=== PATIENT | female | born 1985 | race Caucasian/White ===

== ENCOUNTER 2016-05-30 11:10 | Outpatient (CLI) | payer OTHER ==
[~2016-05-30] VITALS: Ht 167.6 cm; Wt 95.7 kg
[2016-05-30 11:43] VITALS: Ht 167.6 cm; Wt 95.7 kg
[2016-05-30 11:45] VITALS: BP 120/60; PULSE 111; RESP 19
--- NOTE | 2016-05-30 13:05 | RADRPT ---
PROCEDURE: US OB biophysical profile. CLINICAL INDICATION: decreased movements TECHNIQUE: Multiple sonographic images of the pelvis were obtained. The images were reviewed on a PACS workstation. COMPARISON: No prior studies are available for comparison. FINDINGS: There is a single viable intrauterine gestation. Cardiac activity is present with 141 beats per min [place]. There is a vertex presentation. The placenta is posterior. There is no evidence of placental abruption. There is a normal amount of amniotic fluid with an DERRICK = 11.1 cm. Biophysical profile: movement 2/2 tone 2/2. breathing 2/2 DERRICK 2/2 Total 10/03 RPTAT: AA . IMPRESSION: Normal biophysical profile. . .Arsh Watkins MD, MD Date Time Electronically viewed and signed by .Arsh Watkins MD, MD on 05/30/2016 13:05 .S/
--- NOTE | 2016-05-30 13:34 | TRIAGE ---
OB Triage Datetime Report Generated by CPN: 05/30/2016 13:34 Datetime: 05/30/2016 13:25 Vaginal Exam Dilatation (cms): 0.5 Station: -3 Exam By: FOROOHAR Vaginal Bleeding: None Cervix, Consistency: Moderate Cervix, Position: Posterior Datetime: 05/30/2016 12:21 Labor Evaluation Frequency: IRREG Monitor Mode: External Duration (sec)2399: 40-50 Pattern: Normal: <= 5 Contractions in 10 Minutes Resting Tone [place]: Relaxed Heart Rate FHR Baseline Rate: 130 Monitor Mode: External US Variability: Moderate 6-25 bpm Accelerations: 15X15 Decelerations: None Category: Category I Datetime: 05/30/2016 12:04 Time of Arrival: 05/30/2016 11:05 EGA: 33.1 Arrived By: Ambulatory Arrived From: Home Chief Complaint: FEVER 101.5 ON SUNDAY, DFM, ABD PRESSURE, COUGHING Movement: Decreased Contractions: Denies/Absent Rupture of Membranes: Denies Vaginal Bleeding: None Vaginal Discharge: Denies Recent Sexual Intercouse: Denies Abdominal Trauma: Not Applicable Patient Complaints: None Time Provider Notified: 05/30/2016 12:14 Provider Notified: DR. GAY Initial Plan: TOCO/ US Datetime: 05/30/2016 11:53 Stage of : OB Triage Temperature Route: Oral Pain Assessment Pain Presence: None/Denies Datetime: 05/30/2016 11:51 Stage of : OB Triage Datetime: 05/30/2016 11:50 Assessment Type: Admission Assessment Maternal Assessment Level of Consciousness: Fully Conscious DTR's/Clonus: DTRs 2+; No Clonus Headache: Denies Blurred Vision: No Respiratory Effort: Unlabored; Regular Rhythm; Equal Expansion Breath Sounds, Left: Clear and Equal Breath Sounds, Right: Clear and Equal Nausea/Vomiting: Denies RUQ Epigastric Pain: Denies Lower Extremities Edema: None Degree: None Upper Extremities Edema: None Degree: None Facial Edema: None Fall Risk Assessment History of Falling: (0) No Secondary Diagnosis: (0) No Ambulatory Aid: (0) Bedrest/Nurse Assist IV Therapy: (0) No Gait: (0) Normal/Bedrest/Immobile Mental Status: (0) Oriented to Own Ability Fall Score: 0 Fall Risk Score Definition: No Risk: No action required
--- NOTE | 2016-05-30 13:44 | CONS ---
Date/Time of Note Date/Time of Note DATE: 05/30/16 TIME: 13:32 Consultation Date/Type/Reason Admit Date/Time May 30, 2006 OB triage consult Reason for Consultation This patient is a 30 years old 5 para 4 with EDC of July 21 which makes her 37 weeks and 1 day She came to OB triage clinic complaining of abdominal pain as well as body aches and temperature On general examination she is a well-developed well-nourished lady closed with her In reviewing her vital signs blood pressure is 120/60 pulse rate 111 respiration 19 temperature is 98.0 On exam her ear nose throat appears to be no neck vein distention no adenopathy no tenderness Chest generally is clear no rales Heart normal sinus rhythm somewhat tachyng of around 110-100 111. No murmur Respirations 19 no coughing or sneezing at this time. Her breasts are soft nipples are intact Abdomen is soft slight pain of the lower portion of No CVA tenderness movement is no, heart rate is she has very occasional contractions On pelvic examination cervix is very soft about 1 finger 40% with intact membranes on ultrasound study there is a single live intrauterine gestation in vertex presentation placenta is posterior no evidence of abruption amniotic fluid is around 11.1 cm DERRICK her biophysical profile was reported 10/03 Constitutional: other (She said she had a temperature 101 at home but here her temperature is 98), No chills, No diaphoresis, No disoriented, No febrile, No improved, No no complaints, No poor po, No requiring IVF, No requiring O2 Eyes: No discharge, No no complaints, No other, No pain, No redness, No visual change ENT: No bleeding, No congestion, No discharge, No dysphagia, No no complaints, No other, No pain, No sore throat Respiratory: other (No cough no sneezing), No cough, No no complaints, No pain, No pleuritic pain, No shortness of breath, No sputum, No wheezing Cardiovascular: No chest pain, No edema, No lightheadedness, No no complaints, No orthopenea, No other, No palpitations, No paroxysmal nocturnal dyspnea Gastrointestinal: No blood, No constipation, No decreased appetite, No diarrhea , No flatus, No nausea, No no complaints, No other, No pain, No passing stool, No vomiting Genitourinary: other (On pelvic exam is a mention the cervix is about 1-2 cm dilated soft about 40% effaced no evidence of rupture of membrane), No bleeding, No discharge, No dysuria, No flank pain, No hematuria, No no complaints Musculoskeletal: No back pain, No bone/joint pain, No neck pain, No no complaints, No other, No restricted range of motion, No swelling Skin: No bruising, No erythema, No laceration, No no complaints, No other, No pruritis, No rash, No skin lesions Neurologic: No confusion, No dizziness, No focal-weakness, No headache, No no complaints, No other, No seizure, No syncope Endocrine: No dry skin, No no complaints, No other, No polydypsia, No polyuria , No temp intolerance Psychological: No anxiety, No confusion, No depression, No nl mood/affect, No no complaints, No other, No suicidal Additional Comments With these finding patient was given reassurance of her And she was told that apparently you are coming down with the cold symptoms if she desire we consent her to emergency room for further evaluation Social History Smoking Status: Never smoker Exam/Review of Systems Vital Signs Vitals Vital Signs Date Time Temp Pulse Resp B/P Pulse Ox O2 Delivery O2 Flow Rate FiO2 05/30/16 11:45 98.0 111 19 120/60 Room Air TRAVON REYES MD May 30, 2016 13:42
== END 2016-05-30 13:35 | disposition home or self-care (01) ==
LOC: OBT 11:10 → L-D 11:11 → OBT 13:35
PROVIDERS: ATTEND Obstetrics & Gynecology
DX: O26.892 Other specified pregnancy related conditions, second trimester (principal); R10.9 Unspecified abdominal pain; Z3A.37 37 weeks gestation of pregnancy
CPT/HCPCS: 76818; Z7500; G0463

== ENCOUNTER 2016-07-06 13:52 | Inpatient (IN) | payer OTHER ==
[~2016-07-06] VITALS: Ht 167.6 cm; Wt 96.4 kg
[2016-07-06] MEDS ORDERED: LACTATED RINGER'S 1,000 ML IV PRN (14:00)
[2016-07-06] MEDS ORDERED: BUTORPHANOL 2 MG INJ ONE (14:02)
[2016-07-06] MEDS ORDERED: LACTATED RINGER'S 1,000 ML IV SCH (14:05)
[2016-07-06 14:15] VITALS: Ht 167.6 cm; Wt 96.4 kg
[2016-07-06 14:29] LABS: ADD SCAN DIFF NO
[2016-07-06] MEDS ORDERED: MISOPROSTOL 200 MCG TAB PR PRN ×2 (14:30→17:00)
[2016-07-06] MEDS ORDERED: OXYTOCIN 30 UNITS/LR 500 ML IV PRN ×2 (14:30→17:00)
[2016-07-06] MEDS ORDERED: CARBOPROST 250 MCG INJ IM PRN ×2 (14:30→17:00)
[2016-07-06] MEDS ORDERED: LIDOCAINE 1% (MPF) 30 ML INJ INJ PRN (14:30)
[2016-07-06] MEDS ORDERED: BUTORPHANOL 2 MG INJ IV PRN (14:30)
[2016-07-06] MEDS ORDERED: IBUPROFEN 600 MG TAB PO PRN (14:30)
[2016-07-06] MEDS ORDERED: OXYTOCIN 30 UNITS/LR 500 ML IV SCH ×2 (14:30)
[2016-07-06] MEDS ORDERED: METHYLERGONOVINE 0.2 MG INJ IM PRN ×2 (14:30→17:00)
[2016-07-06 14:31] LABS: ABNORMAL IP MESSAGE 1; BASOPHILS % 0.4 % (0.0-2.0); EOSINOPHILS % 0.4 % (0.0-7.0); HEMATOCRIT 38.2 % (37.0-47.0); HEMOGLOBIN 12.4 g/dl (12.0-16.0); LYMPHOCYTES # 1.6 10^3/ul (0.8-2.9); LYMPHOCYTES % 14.3 % (15.0-51.0); MEAN CORPUSCULAR HEMOGLOBIN 27.5 pg (29.0-33.0); MEAN CORPUSCULAR HGB CONC 32.5 g/dl (32.0-37.0); MEAN CORPUSCULAR VOLUME 84.7 fl (82.0-101.0); MEAN PLATELET VOLUME 13.3 fl (7.4-10.4); MONOCYTE # 0.6 10^3/ul (0.3-0.9); MONOCYTES % 5.7 % (0.0-11.0); NEUTROPHIL # 8.7 10^3/ul (1.6-7.5); NEUTROPHILS % 78.8 % (39.0-77.0); PLATELET COUNT 152 10^3/UL (140-415); RED BLOOD COUNT 4.51 10^6/ul (4.20-5.40); RED CELL DISTRIBUTION WIDTH 15.6 % (11.5-14.5)
[2016-07-06 14:59] LABS: INR 1.02; PARTIAL THROMBOPLASTIN TIME 24.1 Sec (25.0-35.0); PROTIME 13.4 Sec (12.2-14.2)
--- NOTE | 2016-07-06 16:03 | LDN ---
Date/Time of Note Date/Time of Note DATE: 07/06/16 TIME: 15:57 Delivery Summary July 06, 2016 Delivery note This patient is 30 years old 5 para 4 with estimated date of confinement of July 17, 2016 which makes her about 38 weeks and 3 this patient was brought today emergency room and was transferred to the delivery room and had a spontaneous vaginal delivery of a 7 lbs. 5 oz. female with score of 9 and 1 minute and 9 in 5 minutes estimated blood loss was about 200 cc and she did well and was transferred to recovery room in stable condition Placenta Delivered: Spontaneously Meconium: none Episiotomy: No Anesthesia type: None Estimated blood loss: 200 Sponge & Needle done & correct: Yes All needle counts correct: Yes Any foreign bodies felt in the: No Problems: Infant Delivery Information Sex Sex: female Apgars 1 Minute: 9 5 Minute: 9 Suctioning Nose & mouth suctioned at tracee: Yes Delee suction performed: No Umbilical Cord Umbilical cord with: 3 Vessels Cord presentations: no nuchal cord Cord Blood was obtained: No Mother & Baby Disposition Disposition Mom transferred to: Med/Surg TRAVON REYES MD July 06, 2016 16:03
[2016-07-06 16:50] VITALS: BP 124/62; PULSE 71; RESP 18
[2016-07-06] MEDS ORDERED: ACETAMINOPHEN 500 MG TAB PO PRN (17:00)
[2016-07-06] MEDS ORDERED: LANOLIN 7 GM TUBE TOP PRN (17:00)
[2016-07-06] MEDS ORDERED: WITCH HAZEL/GLYCERIN PAD PR PRN (17:00)
[2016-07-06] MEDS ORDERED: BENZOCAINE 20% 56 ML SPRAY TOP PRN (17:00)
[2016-07-06] MEDS ORDERED: OXYCODONE/ASPIRIN (4.88/325) TAB PO PRN (17:00)
[2016-07-06] MEDS ORDERED: DIBUCAINE 1% 30 GM OINT PR PRN (17:00)
[2016-07-06] MEDS: OXYTOCIN 30 UNITS/LR 500 ML IV SCH ×2 (17:52→21:48)
[2016-07-06] MEDS: IBUPROFEN 600 MG TAB PO PRN ×2 (17:52→23:42)
[2016-07-06 19:47] VITALS: BP 126/68; PULSE 97; RESP 19
[2016-07-06] MEDS: OXYCODONE/ASPIRIN (4.88/325) TAB PO PRN (19:47)
[2016-07-07 00:10] VITALS: BP 131/73; PULSE 92; RESP 18
[2016-07-07] MEDS: OXYTOCIN 30 UNITS/LR 500 ML IV SCH ×6 (00:53→20:53)
[2016-07-07] MEDS: OXYCODONE/ASPIRIN (4.88/325) TAB PO PRN ×2 (01:39→08:49)
[2016-07-07 04:05] VITALS: BP 103/51; PULSE 71; RESP 18
[2016-07-07] MEDS: IBUPROFEN 600 MG TAB PO PRN ×3 (05:41→22:08)
[2016-07-07 08:00] VITALS: BP 122/72; PULSE 88; RESP 16
[2016-07-07 08:05] LABS: ADD SCAN DIFF NO
[2016-07-07 08:19] LABS: ABNORMAL IP MESSAGE 1; BASOPHIL # 0.1 10^3/ul (0.0-0.1); BASOPHILS % 0.5 % (0.0-2.0); EOSINOPHILS # 0.1 10^3/ul (0.0-0.5); EOSINOPHILS % 1.3 % (0.0-7.0); HEMATOCRIT 38.7 % (37.0-47.0); HEMOGLOBIN 11.8 g/dl (12.0-16.0); LYMPHOCYTES % 27.8 % (15.0-51.0); MEAN CORPUSCULAR HEMOGLOBIN 26.4 pg (29.0-33.0); MEAN CORPUSCULAR HGB CONC 30.5 g/dl (32.0-37.0); MEAN CORPUSCULAR VOLUME 86.6 fl (82.0-101.0); MEAN PLATELET VOLUME 13.8 fl (7.4-10.4); MONOCYTE # 0.6 10^3/ul (0.3-0.9); NEUTROPHIL # 6.9 10^3/ul (1.6-7.5); NEUTROPHILS % 63.9 % (39.0-77.0); PLATELET COUNT 148 10^3/UL (140-415); RED BLOOD COUNT 4.47 10^6/ul (4.20-5.40); RED CELL DISTRIBUTION WIDTH 15.9 % (11.5-14.5); WHITE BLOOD COUNT 10.7 10^3/ul (4.8-10.8)
[2016-07-07 15:30] VITALS: BP 129/81; PULSE 85; RESP 18
[2016-07-07 20:00] VITALS: BP 120/73; PULSE 80; RESP 19
[2016-07-07] MEDS: SENNA/DOCUSATE NA (8.6MG/50MG) TAB PO PRN (21:20)
[2016-07-08] MEDS: OXYTOCIN 30 UNITS/LR 500 ML IV SCH ×5 (00:24→16:53)
[2016-07-08 04:56] VITALS: BP 109/68; PULSE 76; RESP 20
[2016-07-08] MEDS: IBUPROFEN 600 MG TAB PO PRN ×3 (06:10→18:35)
[2016-07-08 08:35] VITALS: BP 130/74; PULSE 80; RESP 18
[2016-07-08] MEDS ORDERED: DIPHTH/TET/ACEL PERTUSS (ADULT) 0.5 ML VIAL IM* ONE (09:00)
[2016-07-08] MEDS: SENNA/DOCUSATE NA (8.6MG/50MG) TAB PO PRN (10:00)
--- NOTE | 2016-07-08 12:40 | DS ---
Date/Time of Note Date/Time of Note DATE: 07/08/16 TIME: 12:39 Discharge Summary Admission/Discharge Info Admit Date/Time July 06, 2016 at 13:53 Discharge Date/Time July 08, 2016 at 1245 Final Diagnosis Normal vaginal delivery Patient Condition: Good Procedures Normal spontaneous vaginal delivery Hx of Present Illness Term Hospital Course Satisfactory uneventful Home Meds No Active Prescriptions or Reported Meds Follow-up Plan Appointment clinic in 2 weeks for checkup DEONNA GAY MD July 08, 2016 12:40
--- NOTE | 2016-07-08 12:51 | HP ---
Date/Time of Note Date/Time of Note DATE: 07/08/16 TIME: 12:45 OB - History Hx of Present Free Text/Dictation This is a 30 years old female 5 para 4 admitted to [facility] at 38 weeks and 3 days with a history of premature rupture of membranes and mild contraction patient is admitted into the L&D unit was placed on antibiotic, labor augmentation is considered pelvic examination on admission cervical dilatation less than 1 cm 30% effaced vertex at -3 station. Chief Complaint: Premature rupture of membrane Estimated Due Date: July 17, 2016 : 5 Para: 4 Care: Good Care Ultrasounds: Normal mid trimester US Obstetrical Complications: None Medical Complications: None Past Family/Social History * Past Medical, Surgical, Family and Obstetric Histories reviewed from chart. Rubella: immune RPR/VDRL: Negative GBS Status: Negative HBsAG: Negative OB Admission Exam Vital Signs Vital Signs Vital Signs Date Time Temp Pulse Resp B/P Pulse Ox O2 Delivery O2 Flow Rate FiO2 07/08/16 06:55 Room Air 07/08/16 04:56 98.3 76 20 109/68 Physical Exam HEENT: WNL Heart: Rhythm Normal Abdomen: WNL Extremities: Normal Reflexes: Normal Cervical Dilatation: Fingertip Effacement: 25% Station: -3 Membranes: Ruptured Heart Rate: 130's Decelerations: No Decelerations Varibility: Moderate Contractions on Admission: >10 Minutes Apart Intensity: Mild Last 72 hours Lab Results CBC & BMP 07/06/16 14:20 07/07/16 07:40 DEONNA GAY MD July 08, 2016 12:51
[2016-07-08 15:35] VITALS: BP 122/71; PULSE 86; RESP 18
[2016-07-08] MEDS: OXYCODONE/ASPIRIN (4.88/325) TAB PO PRN (15:35)
== END 2016-07-08 20:45 | disposition home or self-care (01) | DRG 775 ==
LOC: OBT 13:52 → L-D 13:53 → PP1 16:39
PROVIDERS: ADMIT Obstetrics & Gynecology; ATTEND Obstetrics & Gynecology
PROC: 10E0XZZ Delivery of Products of Conception, External Approach (ICD-10-PCS; principal; 2016-07-06)
PROC: 3E0234Z Introduction of Serum, Toxoid and Vaccine into Muscle, Percutaneous Approach (ICD-10-PCS; 2016-07-08)
DX: O42.02 Full-term premature rupture of membranes, onset of labor within 24 hours of rupture (principal); Z3A.38 38 weeks gestation of pregnancy; Z23 Encounter for immunization; Z37.0 Single live birth
CPT/HCPCS: 85025; 85610; 85730; 86592; 86900; 86901; 87340; 90715; J2590; J7120